=== PATIENT | female | born 1990 | race Hispanic/Latino ===

== ENCOUNTER 2021-02-13 17:40 | Inpatient (IN) | payer OTHER ==
[~2021-02-13] VITALS: Ht 167.6 cm; Wt 93.0 kg
[2021-02-13] MEDS ORDERED: AMPICILLIN 2GM+NS 100ML 100 ML IV SCH (18:30)
[2021-02-13] MEDS ORDERED: AMPICILLIN 1GM+NS 50ML 50 ML IV SCH (18:30)
[2021-02-13] MEDS ORDERED: MISOPROSTOL 100 MCG TABLET VG PRN (18:30)
[2021-02-13 18:31] LABS: HEMATOCRIT 34.3 % (36-48); MEAN CORPUSCULAR HEMOGLOBIN 30.2 pg (27.0-33.0); MEAN CORPUSCULAR HGB CONC 32.9 g/dL (32.0-36.0); MEAN CORPUSCULAR VOLUME 91.7 fL (79-99); RED BLOOD CELL COUNT(AUTO) 3.74 MIL/uL (4.00-5.50); RED CELL DISTRIBUTION WIDTH 14.1 % (11.0-15.5); WHITE BLOOD COUNT (AUTO) 11.4 K/uL (4.8-10.8)
[2021-02-13 18:35] LABS: APPEARANCE,URINE Cloudy (CLEAR); BILIRUBIN,URINE Negative (NEGATIVE); COLOR,URINE Yellow (YELLOW); GLUCOSE, URINE (UA) Negative (NEGATIVE); KETONES,URINE Negative (NEGATIVE); LEUKOCYTE ESTERASE ,URINE Moderate (NEGATIVE); NITRATE,URINE Negative (NEGATIVE); OCCULT BLOOD,URINE Negative (NEGATIVE); PH,URINE 7.5 (5.0-8.0); PROTEIN,URINE Negative (NEGATIVE)
[2021-02-13 18:40] LABS: BACTERIA,URINE Few /HPF (None Seen); RBC,URINE 0-1 /HPF (0-1); SQUAMOUS EPITHELIAL CELL,UR Moderate /HPF (0-2)
[2021-02-13] MEDS ORDERED: MISOPROSTOL 25 MCG TABLET VG PRN (21:00)
[2021-02-14] MEDS: LACTATED RINGERS 1000ML 1,000 ML IV PRN ×2 (00:31→03:45)
[2021-02-14] MEDS ORDERED: OXYTOCIN-LR 20 UNITS/1000 ML 1,000 ML IV ONE (03:27)
[2021-02-14] MEDS ORDERED: OXYTOCIN-LR 20 UNITS/1000 ML 1,000 ML IV SCH ×2 (04:00→07:00)
[2021-02-14 04:12] VITALS: BP 101/54
[2021-02-14] MEDS ORDERED: EPHEDRINE SULFATE 50 MG/ML AMPULE IVP PRN (11:00)
[2021-02-14] MEDS ORDERED: NALOXONE HCL 0.4 MG/1 ML ML IV PRN (11:00)
[2021-02-14] MEDS ORDERED: LACTATED RINGERS 500 ML 500 ML IV PRN (11:00)
[2021-02-14] MEDS ORDERED: ROPIVACAINE 0.2% 100ML VIAL 100 ML EP SCH (11:00)
[2021-02-14] MEDS ORDERED: PROMETHAZINE HCL 25 MG/ML 1ML AMPULE IM PRN (11:00)
[2021-02-14] MEDS ORDERED: MEPERIDINE-PF 50 MG/ML SYG IVP PRN (11:00)
[2021-02-14 11:57] LABS: RAPID PLASMA REAGIN NONREACTIVE (NONREACTIVE)
[2021-02-14] MEDS ORDERED: LIDOCAINE HCL 1% 20 ML VIAL ONE (12:03)
[2021-02-14] MEDS ORDERED: LANOLIN 30GM OINTMENT TP PRN (14:00)
[2021-02-14] MEDS ORDERED: ACETAMINOPHEN WITH CODEINE 1 TAB TAB PO PRN (14:00)
[2021-02-14] MEDS ORDERED: DIPH,PERTUSS(ACELL),TET VAC/PF 0.5 ML VIAL IM PRN (14:00)
[2021-02-14] MEDS ORDERED: WITCH HAZEL 1 PAD TP PRN (14:00)
[2021-02-14] MEDS ORDERED: MEASLES/MUMPS/RUBELLA VACCINE, LIVE 0.5 ML/VIAL SQ PRN (14:00)
[2021-02-14] MEDS ORDERED: BENZOCAINE/LANOLIN/ALOE VERA 60 ML AEROSOL TP PRN (14:00)
[2021-02-14] MEDS ORDERED: ACETAMINOPHEN 325 MG TAB PO PRN (14:00)
[2021-02-14] MEDS: IBUPROFEN 600 MG TABLET PO PRN (15:34)
[2021-02-14] MEDS ORDERED: PREN-154 PO (15:52)
[2021-02-14 15:55] VITALS: BP 110/62
[2021-02-14 19:10] VITALS: BP 116/72
[2021-02-14] MEDS: DOCUSATE SODIUM 100 MG CAP PO SCH (20:28)
[2021-02-14 23:09] VITALS: BP 115/60
[2021-02-15] MEDS: IBUPROFEN 600 MG TABLET PO PRN ×2 (02:31→09:17)
[2021-02-15 03:03] VITALS: BP 101/53
[2021-02-15 06:35] LABS: HEMATOCRIT 29.6 % (36-48); MEAN CORPUSCULAR HEMOGLOBIN 29.2 pg (27.0-33.0); MEAN CORPUSCULAR HGB CONC 32.1 g/dL (32.0-36.0); MEAN CORPUSCULAR VOLUME 91.1 fL (79-99); RED BLOOD CELL COUNT(AUTO) 3.25 MIL/uL (4.00-5.50); RED CELL DISTRIBUTION WIDTH 14.1 % (11.0-15.5); WHITE BLOOD COUNT (AUTO) 11.8 K/uL (4.8-10.8)
[2021-02-15 07:09] VITALS: BP 112/58
[2021-02-15 08:15] LABS: HEPATITIS Bs ANTIGEN SCREEN P Negative (Negative)
[2021-02-15] MEDS: DOCUSATE SODIUM 100 MG CAP PO SCH (09:16)
[2021-02-15 11:04] VITALS: BP 117/66
== END 2021-02-15 14:40 | disposition home or self-care (01) | DRG 807 ==
LOC: EDH 17:40 → LDH 18:05 → WSH 02-14 13:50
PROVIDERS: ADMIT Obstetrics & Gynecology; ATTEND Obstetrics & Gynecology
PROC: 10E0XZZ Delivery of Products of Conception, External Approach (ICD-10-PCS; principal; 2021-02-14)
PROC: 0KQM0ZZ Repair Perineum Muscle, Open Approach (ICD-10-PCS; 2021-02-14)
PROC: 10907ZC Drainage of Amniotic Fluid, Therapeutic from Products of Conception, Via Natural or Artificial Opening (ICD-10-PCS; 2021-02-14)
PROC: 3E0234Z Introduction of Serum, Toxoid and Vaccine into Muscle, Percutaneous Approach (ICD-10-PCS; 2021-02-14)
DX: O69.81X0 Labor and delivery complicated by cord around neck, without compression, not applicable or unspecified (principal); Z37.0 Single live birth; O70.1 Second degree perineal laceration during delivery; Z3A.39 39 weeks gestation of pregnancy; Z23 Encounter for immunization
CPT/HCPCS: 36415; 76805; 81001; 85027; 86592; 86701; 86850; 86900; 86901; 87088; 87340; 87390; 90715; A4351; G0378; J0290; J2590; J7120